=== PATIENT | female | born 1990 | race Caucasian/White ===

== ENCOUNTER 2022-11-14 11:03 | Emergency (ER) | payer OTHER, SELFPAY ==
[2022-11-14 11:10] VITALS: BP 144/81; PULSE 92; RESP 16; TEMP 36.6; O2SAT 100
[2022-11-14 11:39] VITALS: BP 122/74; PULSE 83; RESP 18; TEMP 36.8; O2SAT 98
--- NOTE | 2022-11-14 11:50 | ED.SKABFB ---
HPI - Skin/Abscess/Foreign Bdy General Chief complaint: Skin/Abscess/Foreign Body <ERICH Beyer Last Filed: 11/14/22 16:54> Stated complaint: boil <Angela Treadwell PA-C - Last Filed: 11/14/22 16:54> Time Seen by Provider: 11/14/22 11:21 <ERICH Beyer Last Filed: 11/14/22 16:54> History of Present Illness HPI narrative: Patient is a 32-year-old female here for evaluation of an abscess to her left labia has been present for the past month. She has been following up with her primary care doctor and has been on 3 different rounds of antibiotics. States that the abscess has been fluctuating in size over the past month, but last evening the swelling increased and she noticed a malodorous drainage from the wound. The wound was draining red material over the past month but this was the first time that it drained white/malodorous material. She denies any pain in the area, fevers or chills, nausea or vomiting. Patient is not a diabetic or immunocompromised. <ERICH Beyer Last Filed: 11/14/22 16:54> Related Data Allergies/Adverse reactions: Allergies Allergy/AdvReac Type Severity Reaction Status Date / Time codeine Allergy Unknown Vomiting Verified 11/14/22 11:05 <ERICH Beyer Last Filed: 11/14/22 16:54> Review of Systems Review of Systems: Gen.: Denies fevers or chills Eyes: Denies eye pain or visual change ENT: Denies congestion Respiratory: Denies shortness of breath or cough CV: Denies chest pain or palpitations GI: Denies abdominal pain nausea, emesis or diarrhea denies burning, urgency, frequency or hematuria Musculoskeletal: Denies back pain or muscle pain Neuro: Denies numbness, tingling, weakness or focal weakness Skin: Reports abscess to labia Except as documented, all other systems reviewed and negative <ERICH Beyer Last Filed: 11/14/22 16:54> [facility] Past Medical History Medical History: Medical History Depression Elevated liver function tests Elevated triglycerides with high cholesterol TOAN (generalized anxiety disorder) Morbid (severe) obesity due to excess calories PCOS (polycystic ovarian syndrome) Right leg DVT Ulcerative colitis <Angela Treadwell PA-C - Last Filed: 11/14/22 16:54> Surgical History Surgical History: Surgical History H/O tympanostomy History of colonoscopy History of open reduction and internal fixation (ORIF) procedure History of tonsillectomy [place] teeth removed <Angela Treadwell PA-C - Last Filed: 11/14/22 16:54> Family History Family History: Family History Father Hypertension Acute myocardial infarction Mother Hypertension COPD (chronic obstructive pulmonary disease) Kidney malignancy Heart disease CABG x 2 Grandparent Acute myocardial infarction Breast cancer Ovarian cancer <Angela Treadwell PA-C - Last Filed: 11/14/22 16:54> Social History Social History: Social History Social History: Single Smoking status: Never smoker Second hand tobacco smoke exposure: No Alcohol intake: current Alcohol use details: Socially Substance use: never Substance use type: does not use Living arrangements: with family Occupation/Education: occupation Gender identity (if verbalized by the patient): Female Sexual Orientation (if Verbalized by the Patient): Straight or Heterosexual <Angela Treadwell PA-C - Last Filed: 11/14/22 16:54> Exam Narrative: APPEARANCE: Well appearing, no pain in distress, well-nourished. Obese. Head: Normocephalic and atraumatic. EYES: PERRLA/EOMI, conjunctivae clear NOSE: No nasal drainage EARS: External ear normal in appearan
[2022-11-14 12:00] VITALS: BP 123/84; PULSE 82; RESP 18; O2SAT 100
[2022-11-14] MEDS: LIDOCAINE/PRILOCAINE CREAM 2.5-2.5% TUBE 1 EACH TOPICAL (12:59)
[2022-11-14] MEDS: POVIDONE-IODINE 10% SOLUTION 118 ML BOTTLE TOPICAL (12:59)
[2022-11-14 13:00] VITALS: BP 118/82; PULSE 84; RESP 18; TEMP 36.5; O2SAT 99
[2022-11-14] MEDS: LIDOCAINE HCL 1% LOCAL INJ 10 ML VIAL 5 ML INFILTRATE (13:00)
[2022-11-14 14:00] VITALS: BP 126/78; PULSE 80; RESP 16; O2SAT 100
[2022-11-14 15:00] VITALS: BP 122/78; PULSE 80; RESP 16; TEMP 36.6; O2SAT 99
--- NOTE | 2022-11-14 15:00 | PC.NURSE ---
I&D completed by ERP, pt tolerated procedure
== END 2022-11-14 15:17 | disposition home or self-care (01) ==
PROVIDERS: Emergency Provider Physician Assistant; PCP Family Medicine
DX: N76.4 Abscess of vulva (principal); E28.2 Polycystic ovarian syndrome; E66.01 Morbid (severe) obesity due to excess calories; Z68.43 Body mass index [BMI] 50.0-59.9, adult; Z86.718 Personal history of other venous thrombosis and embolism; F32.A Depression, unspecified; F41.1 Generalized anxiety disorder
CPT/HCPCS: 10060; 56405; 99282

== ENCOUNTER 2023-03-13 12:53 | Outpatient (CLI) | payer OTHER, SELFPAY ==
--- NOTE | 2023-03-13 15:00 | NEURO_ITS ---
Impression: # Complains of numbness of right hand with nocturnal paresthesia. # Right moderate Carpal Tunnel Syndrome. # No ulnar neuropathy. # Needle/EMG exam mildly neurogenic. Nerve Conduction Studies Anti Sensory Summary Table Stim Site NR Peak (ms) P-T Amp (?V) Site1 Site2 Delta-P (ms) Dist (cm) Luis (m/s) Right Median Anti Sensory (2-3nd Digit) Wrist 4.2 7.8 Wrist 2-3nd Digit 4.2 14.0 33 Wrist 4.1 7.5 Wrist 2-3nd Digit 4.2 14.0 33 Right Radial Anti Sensory (Base 1st Digit) Wrist 1.8 36.1 Wrist Base 1st Digit 1.8 0.0 Right Ulnar Anti Sensory (5th Digit) Wrist 2.0 66.7 Wrist 5th Digit 2.0 14.0 70 Motor Summary Table Stim Site NR Onset (ms) O-P Amp (mV) Site1 Site2 Delta-0 (ms) Dist (cm) Luis (m/s) Right Median Motor (Abd Poll Brev) Wrist 5.1 1.5 Elbow Wrist 4.4 26.0 59 Elbow 9.5 0.9 Right Ulnar Motor (Abd Dig Minimi) Wrist 2.1 7.8 A Elbow Wrist 4.7 29.0 62 A Elbow 6.8 6.0 F Wave Studies NR F-Lat (ms) L-R F-Lat (ms) Right Median (Mrkrs) (Abd Poll Brev) 28.54 Right Ulnar (Mrkrs) (Abd Dig Min) 27.43 EMG Side Muscle Nerve Root Ins Act Fibs Amp Dur Recrt Comment Right 1stDorInt Ulnar C8-T1 Nml Nml Nml Nml Nml Right Ext Indicis Radial (Post Int) C7-8 Nml Nml Nml Nml Nml Right Ext Digitorum Radial (Post Int) C7-8 Nml Nml Nml Nml Nml Right BrachioRad Radial C5-6 Nml Nml Nml Nml Nml Right PronatorTeres Median C6-7 Nml Nml Nml Nml Nml Right Abd Poll Brev Median C8-T1 Nml Nml Nml >12ms Reduced MTDD
== END 2023-03-13 12:54 | disposition home or self-care (01) ==
LOC: ANHNEURO 12:54
PROVIDERS: PCP Family Medicine; Visit Provider Physician Assistant
DX: G56.01 Carpal tunnel syndrome, right upper limb (principal); R20.0 Anesthesia of skin; R94.131 Abnormal electromyogram [EMG]
CPT/HCPCS: 95886; 95909

== ENCOUNTER 2023-04-13 12:11 | Emergency (ER) | payer OTHER, SELFPAY ==
[2023-04-13 12:13] VITALS: BP 145/81; PULSE 125; RESP 16; TEMP 37.4; O2SAT 98
--- NOTE | 2023-04-13 13:45 | PC.NURSE ---
Pt left before being seen. Pt states she doesnt want to wait.
== END 2023-04-14 06:21 | disposition left against medical advice (07) ==
PROVIDERS: PCP Family Medicine
DX: R50.9 Fever, unspecified (principal)
CPT/HCPCS: 99199

== ENCOUNTER 2023-07-04 00:09 | Day surgery (SDC) | payer OTHER, SELFPAY ==
[2023-05-29 10:37] VITALS: BMI 58.0
--- NOTE | 2023-05-29 10:48 | PC.NURSE ---
Report to the Outpatient Waiting Room, entrance under the green pavilion located off [facility], at time _1200_ on date _06/04/23_. Planned Procedure Time: _1400__. Time changes happen often and if your time is changed the preop area will call you the afternoon before. - You and your visitor will be asked to self-screen and do not enter if you have any COVID symptoms. - A mask is optional within the hospital at this time. Patients may have clear liquids (water, carbonated beverages, clear teas, apple juice) until 8 hours prior to surgery with a maximum of 20 ounces. - No food from midnight until time of surgery - Infants may have breast milk until 4 hours before surgery, infant formula 6 hours prior to surgery. - Children will be allowed to drink immediately following surgery. If applicable, please bring a bottle or sippy cup to assist with drinking. Juice, water, soda, and popsicles are readily available. For infants on formula, please bring formula the day of surgery. Pacifiers are allowed. Take the following medications with a SIP of water the morning of surgery: __METOPROLOL,CITALOPRAM, NASAL SPRAY, OMPRAZOLE, BUSPIRON IF NEEDED DO NOT STOP ANY OF YOUR OTHER PRESCRIPTION MEDICATIONS PRIOR TO SURGERY ?EXCEPT THE FOLLOWING Medications to discontinue per physician _NONE Date to take last dose Please no make-up, nail chinese, hairspray, perfume, deodorant, or body powder the day of surgery. No jewelry (including any body piercings) or valuables the day of surgery, leave them at home. Please take a shower or bath the night before, or the morning of, surgery with an antibacterial soap. Wear comfortable, loose fitting clothing. Children are encouraged to wear pajamas. - Jewelry must be removed prior to entering the operating room. Rings and piercings that are not removed may be cut off. - The hospital will not accept responsibility for valuables. - Please leave all valuables, including medications, at home the day of surgery. If you are going home after surgery, a licensed milk tanker driver must drive you home. - NO public transportation without another adult if you receive anesthesia. - We recommend that an adult stay with you for 24 hours following discharge. - We also recommend that you do not drive, make important decision, drink alcoholic beverages, or take any drugs that were not prescribed by your health care provider for at least 24 hours after your discharge time. For Pediatric surgeries, we recommend two adults accompany the child home. Follow any additional instructions given to you from your surgeon. If you or anyone in your household have experienced Covid symptoms in the past week, please notify your surgeon or the nurse liaison at the phone number below for possible testing. Telephone instructions given to _PATIENT_and asked if any additional questions and then verbalized understanding. Patient advised to call surgeon office or pre surgery nurse liaison [phone] if any additional questions.
--- NOTE | 2023-07-03 09:42 | PC.NURSE ---
Report to the Outpatient Waiting Room, entrance under the green pavilion located off [facility], at time 1300 on date 07/04/23. Planned Procedure Time: 1500. Time changes happen often and if your time is changed the preop area will call you the afternoon before. - You and your visitor will be asked to self-screen and do not enter if you have any COVID symptoms. - A mask is optional within the hospital at this time. Patients may have clear liquids (water, carbonated beverages, clear teas, apple juice) until 8 hours prior to surgery with a maximum of 20 ounces. - No food from midnight until time of surgery Take the following medications with a SIP of water the morning of surgery: BUSPIRONE IF NEEDED, CITALOPRAM, METOPROLOL, TYLENOL DO NOT STOP ANY OF YOUR OTHER PRESCRIPTION MEDICATIONS PRIOR TO SURGERY ?EXCEPT THE FOLLOWING Medications to discontinue per physician: IBUPROFEN Date to take last dose: PER DR. RIVAS Please no make-up, nail nepali, hairspray, perfume, deodorant, or body powder the day of surgery. No jewelry (including any body piercings) or valuables the day of surgery, leave them at home. Please take a shower or bath the night before, or the morning of, surgery with an antibacterial soap. Wear comfortable, loose fitting clothing. - Jewelry must be removed prior to entering the operating room. Rings and piercings that are not removed may be cut off. - The hospital will not accept responsibility for valuables. - Please leave all valuables, including medications, at home the day of surgery. If you are going home after surgery, a licensed motorcycle delivery driver must drive you home. - NO public transportation without another adult if you receive anesthesia. - We recommend that an adult stay with you for 24 hours following discharge. - We also recommend that you do not drive, make important decision, drink alcoholic beverages, or take any drugs that were not prescribed by your health care provider for at least 24 hours after your discharge time. Follow any additional instructions given to you from your surgeon. If you or anyone in your household have experienced Covid symptoms in the past week, please notify your surgeon or the nurse liaison at the phone number below for possible testing. Telephone instructions given to PT - JARED PALOMINO and asked if any additional questions and then verbalized understanding. Patient advised to call surgeon office or pre surgery nurse liaison [phone] if any additional questions.
[2023-07-04] VITALS (7 sets, daily range): BP systolic 122–150; BP diastolic 56–98; PULSE 76–96; RESP 12–18; TEMP 36.7–37; O2SAT 92–100
--- NOTE | 2023-07-04 09:01 | P.OP_ITS ---
Procedure Note - Detailed Date of Procedure 07/04/23 Pre-op Diagnosis Carpal Tunnel Synd Right Wrist Post-op Diagnosis Same Procedure Performed right ectr Surgeon Hodan Mott MD Anesthesia MAC Description of Procedure ENDOSCOPIC CARPAL TUNNEL RELEASE INFORMED CONSENT: The patient was seen and examined and marked in the pre-op area.? The patient signed the consent form. PROCEDURE IN DETAIL:The patient taken back to OR on the stretcher in supine position. Time out performed with anesthesia, surgeon and staff agreeing on patient's name site and surgery to be performed SCDs were placed on the lower extremities and inflated. A tourniquet was placed on {right} upper extremity and antibiotics given IV After anesthesia administered sedation I injected {10}cc 1%lido with epi and 0.5% marcaine plain at the operative site The?{right upper extremity}?was prepped and draped in sterile fashion the??{right upper extremity} was? exsanguinated with Esmarch bandage and tourniquet inflated to 250mmHg I made a transverse incision in the {right} volar distal wrist crease through skin and dermis with 15 blade scalpel.? Littler scissors spread down to antebrachial fascia. A small incision was made in antebrachial fascia allowing access to Carpal tunnel. I proceeded with sequential dilation staying in line with the ring finger and hugging the hook of the hamate.? I then used the synovial elevator to free any adhesions from the underside of the transverse carpal ligament. Next I was able to insert the Microaire endoscopic carpal tunnel device with direct visualization of the transverse fibers on the monitor and proceeded with complete segmental retrograde release of the ligament in its entirety.? I irrigated with normal saline and closed with 4-0 monocryl for dermis and subcuticular closure. A dressing of Dermabond, 4x4, karlie, and a volar splint was applied for patient safety, security, and comfort and secured with an edgar bandage after the tourniquet was let down noting the hand was warm and well perfused. The patient was then awaken from anesthesia and transferred to the recovery room in stable condition.? Complications - pt had episode of hypoxia from sedation and improved with increased anesthesia and ventilation measures EBL- 4cc due to hypertension and less effective tourniquet Disposition - home in stable conditions [facility] Billing Surgery - Charge Forward: Surgery Billing ([id number])
--- NOTE | 2023-07-04 09:01 | PM.HPGS ---
History of Present Illness History of Present Illness Chief complaint: Carpal Tunnel Synd Right Wrist Narrative: Patient seen and examined in pre-operative holding area. No interval change in medical history or symptoms. Patient recalls previous discussion of benefits and alternatives to procedure. Continues to desire to proceed with right ectr poss open. Reviewed procedure, post-op expectations and risks including but not limited to bleeding, infection, injury to tendon/nerve/vessel, decreased hand function, stiffness, RSD, no change or worsening of symptoms. I discussed the possible use of assistants and their participation in the case. Patient stated understanding and signed the consent form wishing to proceed. Review of Systems Review of Systems: All systems reviewed & are unremarkable except as noted in HPI and below PMFSH Past Medical History Medical History Depression Elevated liver function tests Elevated triglycerides with high cholesterol TOAN (generalized anxiety disorder) Morbid (severe) obesity due to excess calories PCOS (polycystic ovarian syndrome) Right leg DVT Ulcerative colitis Surgical History Surgical History H/O tympanostomy History of colonoscopy History of open reduction and internal fixation (ORIF) procedure History of tonsillectomy [place] teeth removed Family History Family History Father Hypertension Acute myocardial infarction Mother Hypertension COPD (chronic obstructive pulmonary disease) Kidney malignancy Heart disease CABG x 2 Grandparent Acute myocardial infarction Breast cancer Ovarian cancer Social History Social History Social History: Single Smoking status: Never smoker Second hand tobacco smoke exposure: No Additional smoking assessment comments: SOCIAL SMOKER 2012, 1 CIGARETTE WHILE OUT DRINKING Alcohol intake: current Drinks per week: 1 Alcohol use details: Socially Substance use: current Substance use type: does not use Other substance usage details: MARJUANA EDIBLES Last use: 05/06/23 Lack of Transportation: No Lack of Food: Never True Current Housing: I Have Housing Concerned About Future Housing: No Difficulty Paying Gas/Electric Bills: No Difficulty Paying for Meds: No Currently Unemployed: No Education: Master's Degree or Higher Difficulty w/ Childcare or Family Care: No Living arrangements: alone Occupation/Education: occupation Gender identity (if verbalized by the patient): Female Sexual Orientation (if Verbalized by the Patient): Straight or Heterosexual Meds Home Medications and Allergies Home Medications Medication Instructions Recorded Confirmed Type buspirone 5 mg tablet 5 mg PO TID PRN anxiety #90 tabs 08/02/22 07/03/23 Rx clobetasol 0.05 % topical cream 1 applic topical DAILY PRN Rash 01/19/23 07/03/23 History drospirenone (contraceptive) 4 mg 4 mg PO DAILY #3 packets 02/26/23 07/04/23 Rx (28) tablet (Slynd) fluticasone propionate 50 1 spray intranasal DAILY #16 grams 04/16/23 07/03/23 Rx mcg/actuation nasal spray,suspension lisinopril 20 See Rx Instructions .Route 04/16/23 07/03/23 Rx mg-hydrochlorothiazide 12.5 mg .COMPLEX #90 tabs tablet metoprolol succinate 50 mg See Rx Instructions .Route 04/16/23 07/04/23 Rx tablet,extended release 24 hr .COMPLEX #90 tabs omeprazole 20 mg capsule,delayed See Rx Instructions .Route 05/28/23 07/03/23 Rx release .COMPLEX #90 caps diphenhydramine HCl 50 mg capsule 50 mg PO PRN PRN Itching 05/29/23 07/03/23 History citalopram 40 mg tablet See Rx Instructions .Route 06/18/23 07/04/23 Rx .COMPLEX #90 tabs gabapentin 100 mg capsule 100 mg PO TID #21 caps 07/02/23 07/03/23 Rx acetaminophen 500 mg tablet 1,0
--- NOTE | 2023-07-04 14:23 | WPDANESEPPF ---
Anes - Initial Pre Proc Eval Procedure: Operation Date: 07/04/23 15:00 Proposed Procedures p Right Endoscopic Carpal Tunnel Release, Possible Open - Hodan Mott MD Date/Time: 07/04/23 14:23 Surgeon: Hodan Mott MD Pre Op Diagnosis: Carpal Tunnel Synd Right Wrist Patient Data Age: 32 Gender: F Height: 1.7 m Weight: 169 kg Last Vital Signs Temp 36.7 C 07/04/23 13:58 Pulse 80 07/04/23 13:58 Resp 14 07/04/23 13:58 BP 126/56 L 07/04/23 13:58 Pulse Ox 100 07/04/23 13:58 O2 Del Method Room Air 07/04/23 13:58 Allergies Allergy/AdvReac Type Severity Reaction Status Date / Time codeine Allergy Mild Vomiting Verified 07/04/23 14:02 Home Medications Medication Instructions Recorded Confirmed Type buspirone 5 mg tablet 5 mg PO TID PRN anxiety #90 tabs 08/02/22 07/03/23 Rx clobetasol 0.05 % topical cream 1 applic topical DAILY PRN Rash 01/19/23 07/03/23 History drospirenone (contraceptive) 4 mg 4 mg PO DAILY #3 packets 02/26/23 07/04/23 Rx (28) tablet (Slynd) fluticasone propionate 50 1 spray intranasal DAILY #16 grams 04/16/23 07/03/23 Rx mcg/actuation nasal spray,suspension lisinopril 20 See Rx Instructions .Route 04/16/23 07/03/23 Rx mg-hydrochlorothiazide 12.5 mg .COMPLEX #90 tabs tablet metoprolol succinate 50 mg See Rx Instructions .Route 04/16/23 07/04/23 Rx tablet,extended release 24 hr .COMPLEX #90 tabs omeprazole 20 mg capsule,delayed See Rx Instructions .Route 05/28/23 07/03/23 Rx release .COMPLEX #90 caps diphenhydramine HCl 50 mg capsule 50 mg PO PRN PRN Itching 05/29/23 07/03/23 History citalopram 40 mg tablet See Rx Instructions .Route 06/18/23 07/04/23 Rx .COMPLEX #90 tabs gabapentin 100 mg capsule 100 mg PO TID #21 caps 07/02/23 07/03/23 Rx acetaminophen 500 mg tablet 1,000 mg PO QID PRN Pain 07/03/23 07/04/23 History ibuprofen 600 mg tablet 600 mg PO QID PRN Pain 07/03/23 07/03/23 History tramadol 50 mg tablet 50 mg PO Q6H PRN pain #12 tabs 07/04/23 Rx Patient hx anesthesia problems: none Family hx anesthesia problems: none Results Review: All pre-operative results and documents have been reviewed as part of the pre-operative evaluation. [facility] Past Medical History Medical History Depression Elevated liver function tests Elevated triglycerides with high cholesterol TOAN (generalized anxiety disorder) Morbid (severe) obesity due to excess calories PCOS (polycystic ovarian syndrome) Right leg DVT Ulcerative colitis Surgical History Surgical History H/O tympanostomy History of colonoscopy History of open reduction and internal fixation (ORIF) procedure History of tonsillectomy [place] teeth removed Family History Family History Father Hypertension Acute myocardial infarction Mother Hypertension COPD (chronic obstructive pulmonary disease) Kidney malignancy Heart disease CABG x 2 Grandparent Acute myocardial infarction Breast cancer Ovarian cancer Social History Social History Social History: Single Smoking status: Never smoker Second hand tobacco smoke exposure: No Additional smoking assessment comments: SOCIAL SMOKER 2012, 1 CIGARETTE WHILE OUT DRINKING Alcohol intake: current Drinks per week: 1 Alcohol use details: Socially Substance use: current Substance use type: does not use Other substance usage details: MARJUANA EDIBLES Last use: 05/06/23 Lack of Transportation: No Lack of Food: Never True Current Housing: I Have Housing Concerned About Future Housing: No Difficulty Paying Gas/Electric Bills: No Difficulty Paying for Meds: No Currently Unemployed: No Education: Master's Degree or Higher Difficulty w/ Childcare or Family C
[2023-07-04] MEDS: ceFAZolin 3 GM/D5W 100 ML 100 ML IVPB (14:37)
[2023-07-04] MEDS: LIDO 1%/EPINEPHRINE 1:100,000 20 ML VIAL 10 ML INFILTRATE (14:52)
[2023-07-04] MEDS: BUPivacaine HCL 0.5% PF 30 ML VIAL 5 ML INFILTRATE (14:56)
[2023-07-04] MEDS: LACTATED RINGERS 1,000 ML 30 ML IV CONT ×2 (15:18)
[2023-07-04] MEDS: fentaNYL CITRATE INJ (*CRX) 100 MCG/2 ML VIAL 25 MCG IV PUSH ×4 (15:39→15:54)
[2023-07-04] MEDS: oxyCODONE HCL (*CRX) 5 MG TAB IR PO (16:27)
== END 2023-07-04 16:39 | disposition home or self-care (01) ==
PROVIDERS: PCP Family Medicine; Visit Provider Plastic Surgery
PROC: 01N54ZZ Release Median Nerve, Percutaneous Endoscopic Approach (ICD-10-PCS; CPT 29848; principal; 2023-07-04 15:00)
DX: G56.01 Carpal tunnel syndrome, right upper limb (principal); F41.1 Generalized anxiety disorder; F32.A Depression, unspecified; E28.2 Polycystic ovarian syndrome; E78.00 Pure hypercholesterolemia, unspecified; E78.1 Pure hyperglyceridemia; Z86.718 Personal history of other venous thrombosis and embolism; E66.01 Morbid (severe) obesity due to excess calories; Z68.43 Body mass index [BMI] 50.0-59.9, adult; F12.90 Cannabis use, unspecified, uncomplicated
CPT/HCPCS: 29848; A9270; J0330; J0690; J2250; J2704; J3010; J7120

== ENCOUNTER 2024-02-15 16:33 | Outpatient (CLI) | payer OTHER, SELFPAY ==
[2024-02-15 17:21] LABS: Anion Gap 7 mmol/L (4-12); Blood Urea Nitrogen 11 mg/dL (7-17); Calcium 8.9 mg/dL (8.4-10.2); Carbon Dioxide 27 mmol/L (22-30); Chloride 102 mmol/L (98-107); Estimated Glomerular Filt Rate > 60; Glucose 130 mg/dL (65-110); Potassium 4.2 mmol/L (3.4-5.0); Sodium 136 mmol/L (137-145)
== END 2024-02-15 16:34 | disposition home or self-care (01) ==
LOC: ANHLAB 16:35
PROVIDERS: PCP Family Medicine; Visit Provider Anesthesiology
DX: Z51.81 Encounter for therapeutic drug level monitoring (principal); Z79.899 Other long term (current) drug therapy
CPT/HCPCS: 36415; 80048

== ENCOUNTER 2024-02-20 00:10 | Day surgery (SDC) | payer OTHER, SELFPAY ==
[2024-02-14 10:12] VITALS: BMI 59.1
--- NOTE | 2024-02-14 10:17 | PC.NURSE ---
Report to the Outpatient Waiting Room, entrance under the green pavilion located off [facility], at time _1115_ on date _[id number]_. Planned Procedure Time: _115pm_. Time changes happen often and if your time is changed the preop area will call you the afternoon before. - You and your visitor will be asked to self-screen and do not enter if you have any COVID symptoms. - A mask is optional within the hospital at this time. May have clear liquids (water, carbonated beverages, clear teas, apple juice) no more than 20 ounces, until 515am then nothing to drink until after surgery. - No food from midnight until time of surgery Take the following medications with a SIP of water the morning of surgery: ___Citalopram, Metoprolol, Norethindrone and if needed Buspirone. DO NOT STOP ANY OF YOUR OTHER PRESCRIPTION MEDICATIONS PRIOR TO SURGERY ?EXCEPT THE FOLLOWING Medications to discontinue per physician Vitamin B-12 and Probiotic Date to take last tnvw____[id number] Please no make-up, nail maltese, hairspray, perfume, deodorant, or body powder the day of surgery. No jewelry (including any body piercings) or valuables the day of surgery, leave them at home. Please take a shower or bath the night before, or the morning of, surgery with an antibacterial soap. Wear comfortable, loose fitting clothing. - Jewelry must be removed prior to entering the operating room. Rings and piercings that are not removed may be cut off. - The hospital will not accept responsibility for valuables. - Please leave all valuables, including medications, at home the day of surgery. If you are going home after surgery, a licensed cdl flatbed truck driver must drive you home. - NO public transportation without another adult if you receive anesthesia. - We recommend that an adult stay with you for 24 hours following discharge. - We also recommend that you do not drive, make important decision, drink alcoholic beverages, or take any drugs that were not prescribed by your health care provider for at least 24 hours after your discharge time. Follow any additional instructions given to you from your surgeon. If you or anyone in your household have experienced Covid symptoms in the past week, please notify your surgeon or the nurse liaison at the phone number below for possible testing. Telephone instructions given to __Luna__and asked if any additional questions and then verbalized understanding. Patient advised to call surgeon office or pre surgery nurse liaison [phone] if any additional questions.
--- NOTE | 2024-02-20 06:53 | WPDHPUPDATE1 ---
History and Physical Update Update Date/Time: 02/20/24 06:53 Patient seen and examined in pre-operative holding area. No interval change in medical history or symptoms. Patient recalls previous discussion of benefits and alternatives to procedure. Continues to desire to proceed with left endoscopic possible open carpal tunnel release and concurrent right carpal tunnel steroid injection. Reviewed procedure, post-op expectations and risks including but not limited to bleeding, infection, injury to tendon/nerve/vessel, decreased hand function, stiffness, RSD, no change or worsening of symptoms. I discussed the possible use of assistants and their participation in the case. Patient stated understanding and signed the consent form wishing to proceed.
--- NOTE | 2024-02-20 06:54 | P.OP_ITS ---
Procedure Note - Detailed Date of Procedure 02/20/24 Pre-op Diagnosis b/l Carpal tunnel syndrome Post-op Diagnosis Same Procedure Performed left ectr and right carpal tunnel steroid injection Surgeon Hodan Mott MD Internet Sales Associate jeanc-laude rivera pa-c Anesthesia MAC Description of Procedure INFORMED CONSENT: The patient was seen and examined and marked in the pre-op area.? The patient signed the consent form. PROCEDURE IN DETAIL:The patient taken back to OR on the stretcher in supine position. Time out performed with anesthesia, surgeon and staff agreeing on patient's name site and surgery to be performed SCDs were placed on the lower extremities and inflated. A tourniquet was placed on {left} upper extremity and antibiotics given IV After anesthesia administered sedation I injected {6}cc 1%lido with epi and 0.5% marcaine plain at the operative site The?{left upper extremity}?was prepped and draped in sterile fashion the??{left upper extremity} was? exsanguinated with Esmarch bandage and tourniquet inflated to 250mmHg I made a transverse incision in the {left} volar distal wrist crease through skin and dermis with 15 blade scalpel.? Littler scissors spread down to antebrachial fascia. A small incision was made in antebrachial fascia allowing access to Carpal tunnel. I proceeded with sequential dilation staying in line with the ring finger and hugging the hook of the hamate.? I then used the synovial elevator to free any adhesions from the underside of the transverse carpal ligament. There was a signfiicant amount of adipose tissue and synovitis that required multiple masses with synovial elevator and attempts at camera placement til the transverse fibers of the ligament could be clearly identified. Next I was able to insert the Microaire endoscopic carpal tunnel device with direct visualization of the transverse fibers on the monitor and proceeded with complete segmental retrograde release of the ligament in its entirety.? I irrigated with normal saline and closed with 4-0 monocryl for dermis and subcuticular closure. A dressing of Dermabond, 4x4, karlie, and a volar splint was applied for patient safety, security, and comfort and secured with an edgar bandage after the tourniquet was let down noting the hand was warm and well perfused. Next, I proceeded with injecting 0.3cc 1%lidocaine plain and 0.7cc Betamethasone 6mg/ml into the right capal tunnel under sterile conditions. The patient was then awaken from anesthesia and transferred to the recovery room in stable condition.? Complications - none EBL- 0cc Disposition - home in stable conditions jean-claude rivera pa-c was essential for positioning, retraction, closure and dressing placement [facility] Billing Surgery - Charge Forward: Surgery Billing ([id number] for jean-claude)
[2024-02-20] MEDS: LIDO 1%/EPINEPHRINE 1:100,000 20 ML VIAL 10 ML INFILTRATE (09:06)
[2024-02-20 11:08] VITALS: BP 144/85; PULSE 82; RESP 14; TEMP 36.2; O2SAT 98
[2024-02-20 11:10] VITALS: BMI 60.2
--- NOTE | 2024-02-20 11:33 | WPDANESEPPF ---
Anes - Initial Pre Proc Eval Procedure: Operation Date: 02/20/24 13:15 Proposed Procedures p Left Endoscopic Carpal Tunnel Release, Possible Open - Hodan Mott MD Date/Time: 02/20/24 11:33 Surgeon: Hodan Mott MD Pre Op Diagnosis: Left Carpal tunnel syndrome Patient Data Age: 33 Gender: F Height: 1.7 m Weight: 171.4 kg Allergies Allergy/AdvReac Type Severity Reaction Status Date / Time codeine Allergy Mild Vomiting Verified 02/14/24 10:09 metformin AdvReac Intermediate Diarrhea Verified 02/14/24 10:32 Home Medications Medication Instructions Recorded Confirmed Type diphenhydramine HCl 50 mg capsule 50 mg PO PRN PRN Itching 05/29/23 02/14/24 History citalopram 40 mg tablet See Rx Instructions .Route 09/16/23 02/14/24 Rx .COMPLEX #90 tabs norethindrone (contraceptive) 0.35 0.35 mg PO DAILY #84 tabs 09/24/23 02/14/24 Rx mg tablet lisinopril 20 See Rx Instructions .Route 10/19/23 02/14/24 Rx mg-hydrochlorothiazide 12.5 mg .COMPLEX #90 tabs tablet metoprolol succinate 50 mg See Rx Instructions .Route 10/19/23 02/14/24 Rx tablet,extended release 24 hr .COMPLEX #90 tabs omeprazole 20 mg capsule,delayed 20 mg PO BID #180 caps 12/27/23 02/14/24 Rx release clobetasol 0.05 % topical cream 1 applic topical DAILY PRN Rash 01/28/24 02/14/24 Rx #60 grams buspirone 5 mg tablet 5 mg PO TID PRN anxiety #90 tabs 02/01/24 02/14/24 Rx Lactobacillus acidophilus 250 2,000 mmu cells PO DAILY 02/14/24 02/14/24 History million cell capsule (Probiotic Acidophilus) cyanocobalamin (vitamin B-12) 1,000 mcg PO DAILY 02/14/24 02/14/24 History 1,000 mcg tablet (Vitamin B-12) tramadol 50 mg tablet 50 mg PO Q6H PRN pain #12 tabs 02/20/24 Rx Patient hx anesthesia problems: none Family hx anesthesia problems: none Results Review: All pre-operative results and documents have been reviewed as part of the pre-operative evaluation. [facility] Past Medical History Medical History Depression Elevated liver function tests Elevated triglycerides with high cholesterol TOAN (generalized anxiety disorder) Morbid (severe) obesity due to excess calories PCOS (polycystic ovarian syndrome) Right leg DVT Ulcerative colitis Surgical History Surgical History H/O tympanostomy History of colonoscopy History of open reduction and internal fixation (ORIF) procedure History of tonsillectomy [place] teeth removed Family History Family History Father Hypertension Acute myocardial infarction Mother Hypertension COPD (chronic obstructive pulmonary disease) Kidney malignancy Heart disease CABG x 2 Grandparent Acute myocardial infarction Breast cancer Ovarian cancer Social History Social History Social History: Single Smoking status: Never smoker Second hand tobacco smoke exposure: No Additional smoking assessment comments: SOCIAL SMOKER 2012, 1 CIGARETTE WHILE OUT DRINKING Alcohol intake: current Drinks per week: 1 Alcohol use details: Socially Substance use: current Substance use type: marijuana Other substance usage details: Daily Last use: 05/06/23 Do You Feel Safe in your Home?: Yes Lack of Transportation: No Lack of Food: Never True Current Housing: I Have Housing Concerned About Future Housing: No Difficulty Paying Gas/Electric Bills: No Difficulty Paying for Meds: No Currently Unemployed: No Education: Master's Degree or Higher Difficulty w/ Childcare or Family Care: No Living arrangements: alone 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 Gender identity (if verbalized by the patient): Female Sexual Orientation (if Verbalized by the Patient): Straight or Heter
[2024-02-20] MEDS: LACTATED RINGERS 1,000 ML 30 ML IV CONT (12:00)
[2024-02-20 12:04] LABS: BEDSIDEPREGUCG Negative
[2024-02-20] MEDS: ceFAZolin 3 GM/D5W 100 ML 100 ML IVPB (12:13)
[2024-02-20] MEDS: methylPREDNISolone ACETATE 80 MG/ML VIAL IM (12:17)
[2024-02-20] MEDS: BUPivacaine HCL 0.5% PF 30 ML VIAL 10 ML INFILTRATE (12:28)
[2024-02-20 12:42] VITALS: BP 130/74; PULSE 74; RESP 20
[2024-02-20] MEDS: fentaNYL CITRATE INJ (*CRX) 100 MCG/2 ML VIAL 25 MCG IV PUSH ×2 (13:01→13:05)
[2024-02-20] MEDS: ONDANSETRON INJ 4 MG/2 ML VIAL IV PUSH (13:03)
[2024-02-20 13:10] VITALS: BP 128/70; PULSE 74; RESP 20
[2024-02-20 13:35] VITALS: BP 103/78; PULSE 68; RESP 20
== END 2024-02-20 13:40 | disposition home or self-care (01) ==
PROVIDERS: Physician Assistant Surgical; PCP Family Medicine; Visit Provider Plastic Surgery
PROC: 01N54ZZ Release Median Nerve, Percutaneous Endoscopic Approach (ICD-10-PCS; CPT 29848; principal; 2024-02-20 13:15)
DX: G56.03 Carpal tunnel syndrome, bilateral upper limbs (principal); E78.1 Pure hyperglyceridemia; E78.00 Pure hypercholesterolemia, unspecified; F41.1 Generalized anxiety disorder; F32.A Depression, unspecified; Z86.718 Personal history of other venous thrombosis and embolism; E66.01 Morbid (severe) obesity due to excess calories; Z68.44 Body mass index [BMI] 60.0-69.9, adult; F12.90 Cannabis use, unspecified, uncomplicated
CPT/HCPCS: 29848; 20526; J0690; J1010; J2250; J2405; J2704; J3010; J7120

== ENCOUNTER 2024-04-15 09:56 | Outpatient (CLI) | payer OTHER, SELFPAY ==
--- NOTE | 2024-04-15 10:00 | NEURO_ITS ---
Impression: # Complains of numbness of fingers status post Carpal Tunnel Repair # No Carpal Tunnel Syndrome # No Ulnar Neuropathy # Cross innervation ulnar to median stimulating above the elbow. # Needle Exam/ EMG normal. Nerve Conduction Studies Anti Sensory Summary Table Stim Site NR Peak (ms) P-T Amp (?V) Site1 Site2 Delta-P (ms) Dist (cm) Luis (m/s) Right Median Anti Sensory (2-3nd Digit) Wrist 3.0 73.5 Wrist 2-3nd Digit 3.0 14.0 47 Wrist 2.7 34.9 Wrist 2-3nd Digit 3.0 14.0 47 Right Radial Anti Sensory (Base 1st Digit) Wrist 2.1 26.5 Wrist Base 1st Digit 2.1 0.0 Right Ulnar Anti Sensory (5th Digit) Wrist 2.0 42.8 Wrist 5th Digit 2.0 14.0 70 Motor Summary Table Stim Site NR Onset (ms) O-P Amp (mV) Site1 Site2 Delta-0 (ms) Dist (cm) Luis (m/s) Right Median Motor (Abd Poll Brev) Wrist 2.5 5.5 Elbow Wrist 4.8 30.0 63 Elbow 7.3 3.7 Right Ulnar Motor (Abd Dig Minimi) Wrist 2.4 7.6 A Elbow Wrist 4.7 30.0 64 A Elbow 7.1 6.3 B Elbow Wrist 0.2 0.0 B Elbow 2.2 5.6 F Wave Studies NR F-Lat (ms) L-R F-Lat (ms) Right Median (Mrkrs) (Abd Poll Brev) 27.50 Right Ulnar (Mrkrs) (Abd Dig Min) 27.27 EMG Side Muscle Nerve Root Ins Act Fibs Amp Dur Recrt Comment Right 1stDorInt Ulnar C8-T1 Nml Nml Nml Nml Nml Right Ext Indicis Radial (Post Int) C7-8 Nml Nml Nml Nml Nml Right Ext Digitorum Radial (Post Int) C7-8 Nml Nml Nml Nml Nml Right BrachioRad Radial C5-6 Nml Nml Nml Nml Nml Right PronatorTeres Median C6-7 Nml Nml Nml Nml Nml Right Abd Poll Brev Median C8-T1 Nml Nml Nml Nml Nml Right ABD Dig Min Ulnar C8-T1 Nml Nml Nml Nml Nml MTDD
== END 2024-04-15 09:57 | disposition home or self-care (01) ==
LOC: ANHNEURO 09:57
PROVIDERS: PCP Family Medicine; Visit Provider Plastic Surgery
DX: R20.0 Anesthesia of skin (principal); G56.01 Carpal tunnel syndrome, right upper limb
CPT/HCPCS: 95886; 95909

== ENCOUNTER 2024-05-14 00:23 | Day surgery (SDC) | payer OTHER, SELFPAY ==
[2024-05-06 15:52] VITALS: BMI 60.4
--- NOTE | 2024-05-06 15:52 | PC.NURSE ---
Report to the Outpatient Waiting Room, entrance under the green pavilion located off [facility], at time _1245_ on date _[id number]_. Planned Procedure Time: _245pm_.? Time changes happen often and if your time is changed the preop area will call you the afternoon before. - You and your visitor will be asked to self-screen and do not enter if you have any COVID symptoms. Please call surgeon if you need to reschedule. - A mask is optional within the hospital at this time. May have clear liquids (water, carbonated beverages, clear teas, apple juice) until 645am with a maximum of 20 ounces. Nothing to drink after 645am. - No food from midnight until time of surgery and no smoking Take only the following medications with a SIP of water on the morning of surgery: ___Citalopram, Metoprolol and Norethindrone DO NOT STOP ANY OF YOUR OTHER PRESCRIPTION MEDICATIONS PRIOR TO SURGERY EXCEPT THE FOLLOWING Medications to discontinue per physician ___Vitamin B-12 and Probiotic Date to take last tlbl__[id number] Please no make-up, nail maori, hairspray, perfume, deodorant, or body powder the day of surgery.? No jewelry (including any body piercings) or valuables the day of surgery, leave them at home.? Please take a shower or bath the night before, or the morning of, surgery with an antibacterial soap.? Wear comfortable, loose fitting clothing.? - Jewelry must be removed prior to entering the operating room.? Rings and piercings that are not removed may be cut off. - The hospital will not accept responsibility for valuables.? - Please leave all valuables, including medications, at home the day of surgery. If you are going home after surgery, a licensed transporter driver must drive you home.? - NO public transportation without another adult if you receive anesthesia. - We recommend that an adult stay with you for 24 hours following discharge. - We also recommend that you do not drive, make important decision, drink alcoholic beverages, or take any drugs that were not prescribed by your health care provider for at least 24 hours after your discharge time. Follow any additional instructions given to you from your surgeon. Telephone instructions given to __Luna__and asked if any additional questions and then verbalized understanding. Patient advised to call surgeon office or pre surgery nurse liaison [phone] if any additional questions.
[2024-05-14] VITALS (7 sets, daily range): BP systolic 109–143; BP diastolic 61–77; PULSE 76–96; RESP 16–20; TEMP 36.4–36.6; O2SAT 94–98; BMI 61.1
--- NOTE | 2024-05-14 06:55 | WPDHPUPDATE1 ---
History and Physical Update Update Date/Time: 05/14/24 06:55 Patient seen and examined in pre-operative holding area. No interval change in medical history or symptoms. Patient recalls previous discussion of benefits and alternatives to procedure. Continues to desire to proceed with right cubital tunnel release. Reviewed procedure, post-op expectations and risks including but not limited to bleeding, infection, injury to tendon/nerve/vessel, decreased hand function, stiffness, RSD, no change or worsening of symptoms. I discussed the possible use of assistants and their participation in the case. Patient stated understanding and signed the consent form wishing to proceed.
--- NOTE | 2024-05-14 06:56 | P.OP_ITS ---
Procedure Note - Detailed Date of Procedure 05/14/24 Pre-op Diagnosis right cubital tunnel syndrome Post-op Diagnosis Same Procedure Performed right CuTR Surgeon Hodan Mott MD Erecting Crane Operator jean-claude rivera pa-c Anesthesia MAC Description of Procedure INFORMED CONSENT:The patient was seen and examined and marked in the pre-op area.? The patient signed the consent form. PROCEDURE IN DETAIL: The patient taken back to OR on the stretcher in supine position. Time out performed with anesthesia, surgeon and staff agreeing on patient's name site and surgery to be performed SCDs were placed on the lower extremities and inflated A tourniquet was placed on {right} upper extremity and antibiotics given IV After anesthesia administered sedation I injected {8}cc 1%lido with epi and 0.5% marcaine plain at the operative site The?{right upper extremity}?was prepped and draped in sterile fashion the??{right upper extremity} was??exsanguinated with Esmarch bandage and tourniquet inflated to 250mmHg I next proceeded with making a longitudinal incision between two heads for flexor carpi ulnaris at end of {right} cubital tunnel with 15 blade scalpel.? Littler scissors were used to spread down to FCU fascia.? An incision was made in FCU fascia and ulnar nerve identified exiting cubital tunnel.? I proceeded with complete retrograde release of the cubital tunnel including 7cm proximal for the intermuscular septum.? The nerve was very atrophic and flat in appearance with fatty appearing epineurium that did not appear to be causing constriction of the nerve.? There was no subluxation on full elbow range of motion. ? I irrigated with normal saline and closure with 3-0 vicryl and 4-0 monocryl. The incision was covered with Dermabond then 4x4s, karlie, and a posterior elbow splint for patient safety, security and comfort and secured with edgar bandages after the tourniquet was let down noting the hand was warm and well perfused.? Patient awaken from anesthesia and transferred to recovery in stable condition Complications - none EBL- 1cc Disposition - home in stable conditions Jean-Claude Rivera PA-C was essential for positioning, retraction, closure and dressing placement [facility] Billing Surgery - Charge Forward: Surgery Billing ([id number] for jean-claude)
[2024-05-14] MEDS: LACTATED RINGERS 1,000 ML 30 ML IV CONT (13:45)
--- NOTE | 2024-05-14 13:52 | WPDANESEPPF ---
Anes - Initial Pre Proc Eval Procedure: Operation Date: 05/14/24 16:15 Proposed Procedures p Right Cubital Tunnel Release - Hodan Mott MD Date/Time: 05/14/24 13:52 Surgeon: Hodan Mott MD Pre Op Diagnosis: lesion right ulnar nerve Patient Data Age: 33 Gender: F Height: 1.7 m Weight: 175 kg Allergies Allergy/AdvReac Type Severity Reaction Status Date / Time metformin AdvReac Intermediate Diarrhea Verified 05/06/24 15:47 codeine AdvReac Mild Vomiting Verified 05/13/24 14:30 Home Medications Medication Instructions Recorded Confirmed Type diphenhydramine HCl 50 mg capsule 50 mg PO PRN PRN Itching 05/29/23 05/06/24 History norethindrone (contraceptive) 0.35 0.35 mg PO DAILY #84 tabs 09/24/23 05/06/24 Rx mg tablet omeprazole 20 mg capsule,delayed 20 mg PO BID #180 caps 12/27/23 05/06/24 Rx release clobetasol 0.05 % topical cream 1 applic topical DAILY PRN Rash 01/28/24 05/06/24 Rx #60 grams buspirone 5 mg tablet 5 mg PO TID PRN anxiety #90 tabs 02/01/24 05/06/24 Rx Lactobacillus acidophilus 250 2,000 mmu cells PO DAILY 02/14/24 05/06/24 History million cell capsule (Probiotic Acidophilus) cyanocobalamin (vitamin B-12) 1,000 mcg PO DAILY 02/14/24 05/06/24 History 1,000 mcg tablet (Vitamin B-12) citalopram 40 mg tablet See Rx Instructions .Route 03/14/24 05/06/24 Rx .COMPLEX #90 tabs metoprolol succinate 50 mg See Rx Instructions .Route 04/15/24 05/06/24 Rx tablet,extended release 24 hr .COMPLEX #90 tabs lisinopril 20 See Rx Instructions .Route 04/16/24 05/06/24 Rx mg-hydrochlorothiazide 12.5 mg .COMPLEX #90 tabs tablet Patient hx anesthesia problems: none Family hx anesthesia problems: none Results Review: All pre-operative results and documents have been reviewed as part of the pre-operative evaluation. [facility] Past Medical History Medical History Depression Elevated liver function tests Elevated triglycerides with high cholesterol TOAN (generalized anxiety disorder) Morbid (severe) obesity due to excess calories PCOS (polycystic ovarian syndrome) Right leg DVT Ulcerative colitis Surgical History Surgical History H/O tympanostomy History of colonoscopy History of open reduction and internal fixation (ORIF) procedure History of tonsillectomy [place] teeth removed Family History Family History Father Hypertension Acute myocardial infarction Mother Hypertension COPD (chronic obstructive pulmonary disease) Kidney malignancy Heart disease CABG x 2 Grandparent Acute myocardial infarction Breast cancer Ovarian cancer Social History Social History Social History: Single Smoking status: Never smoker Second hand tobacco smoke exposure: No Alcohol intake: current Alcohol use details: Socially Substance use: current Substance use type: marijuana Other substance usage details: Daily Last use: 05/06/23 Do You Feel Safe in your Home?: Yes Lack of Transportation: No Lack of Food: Never True Current Housing: I Have Housing Concerned About Future Housing: No Difficulty Paying Gas/Electric Bills: No Difficulty Paying for Meds: No Currently Unemployed: No Education: Master's Degree or Higher Difficulty w/ Childcare or Family Care: No Living arrangements: with family 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 Gender identity (if verbalized by the patient): Female Sexual Orientation (if Verbalized by the Patient): Straight or Heterosexual Spiritual care concerns: No Anes - Eval Final PreProcedure Day of Procedure 05/14/24 13:52 Patient weight: super morbidly obese Heart: regular rate and rhythm Lungs: clear to auscultation Airway: Mallampati scale Neurological: alert and oriented Last oral intake: >/= 8 hours ASA classification: IV Emergent: no Anesthetic plan: proceed Anesthesia type and monitoring: general and standard monitoring Results Review: All pre-operative results and documents have been reviewed as part of the pre-operative evaluation. Super MO. PCOS, question of UC. Pt states that she can ride stationary bike for 2 miles, no cp, mild dypsnea. Informed Consent: The patient's anesthetic plan and its attendant risks and benefits were discussed with the patient/family/POA. Questions were solicited and answers provided to the satisfaction of the patient/family/POA.
[2024-05-14 14:08] LABS: BEDSIDEPREGUCG Negative (Negative)
[2024-05-14] MEDS: ceFAZolin 3 GM/D5W 100 ML 100 ML IVPB (14:32)
[2024-05-14] MEDS: LIDO 1%/EPINEPHRINE/PF 1:200,000 30 ML VIAL 10 ML XX (14:44)
== END 2024-05-14 16:29 | disposition home or self-care (01) ==
PROVIDERS: PCP Family Medicine; Visit Provider Plastic Surgery
PROC: (CPT 64718; principal; 2024-05-14 16:15)
DX: G56.21 Lesion of ulnar nerve, right upper limb (principal); F32.A Depression, unspecified; E78.00 Pure hypercholesterolemia, unspecified; F41.9 Anxiety disorder, unspecified; E28.2 Polycystic ovarian syndrome; F12.90 Cannabis use, unspecified, uncomplicated; E66.01 Morbid (severe) obesity due to excess calories; Z68.44 Body mass index [BMI] 60.0-69.9, adult; Z98.890 Other specified postprocedural states; Z86.718 Personal history of other venous thrombosis and embolism; Z87.19 Personal history of other diseases of the digestive system; Z80.51 Family history of malignant neoplasm of kidney; Z80.3 Family history of malignant neoplasm of breast; Z80.41 Family history of malignant neoplasm of ovary; Z82.49 Family history of ischemic heart disease and other diseases of the circulatory system
CPT/HCPCS: 64718; J0690; J1100; J2004; J2250; J2405; J2704; J3010; J7120